=== PATIENT | female | born 1985 | race American Indian/Alaskan Native ===

== ENCOUNTER 2017-04-21 12:19 | Emergency (ER) | payer OTHER ==
[2017-04-21 12:30] VITALS: BP 118/70; PULSE 92; RESP 18; TEMP 98.4; O2SAT 100
[2017-04-21 13:25] LABS: BASO % 0.3 % (0.0-2.0); EOS # 0.1 K/uL (0.0-0.7); EOS % 0.6 % (0.0-4.0); HEMATOCRIT 37.1 % (34.0-47.0); LYMPH # 1.8 K/uL (1.0-4.3); LYMPH % 16.9 % (20.0-40.0); MEAN CELL VOLUME 89.1 fl (81.0-99.0); MEAN CORPUSCULAR HEMOGLOBIN 29.7 pg (27.0-31.0); MEAN CORPUSCULAR HGB CONC 33.3 g/dL (33.0-37.0); MEAN PLATELET VOLUME 7.8 fl (7.2-11.7); MONO # 0.6 K/uL (0.0-0.8); MONO % 5.5 % (0.0-10.0); NEUT # 8.3 K/uL (1.8-7.0); NEUT % 76.7 % (50.0-75.0); RED CELL DISTRIBUTION WIDTH 13.5 % (11.5-14.5); WHITE BLOOD COUNT 10.8 K/uL (4.8-10.8)
[2017-04-21 13:27] LABS: ALB/GLOB RATIO 1.2 (1.0-2.1); ALKALINE PHOSPHATASE 52 U/L (38-126); ALT/SGPT 32 U/L (9-52); AST/SGOT 46 U/L (14-36); BILIRUBIN,TOTAL 0.5 mg/dl (0.2-1.3); BLOOD UREA NITROGEN 8 mg/dl (7-17); CALCIUM 9.4 mg/dL (8.4-10.2); CARBON DIOXIDE 22 mmol/L (22-30); CHLORIDE 103 mmol/L (98-107); GFR AFRICAN-AMERICAN > 60; GLUCOSE,RANDOM 85 mg/dL (65-105); SODIUM 136 mmol/l (132-148); TOTAL PROTEIN 7.9 G/DL (6.3-8.2)
[2017-04-21 13:46] LABS: RBC URINE 3 /hpf (0-3); URINE BACTERIA OCC (<OCC); URINE BILIRUBIN NEGATIVE (NEGATIVE); URINE BLOOD NEGATIVE (NEGATIVE); URINE COLOR YELLOW (YELLOW); URINE GLUCOSE (UA) NEG (Normal); URINE KETONE 20 mg/dL (NEGATIVE); URINE LEUKOCYTE ESTERASE TRACE Leu/uL (Negative); URINE PROTEIN 30 mg/dL (NEGATIVE); URINE UROBILINOGEN 0.2-1.0 mg/dL (0.2-1.0); WBC URINE 4 /hpf (0-5)
[2017-04-21 14:14] LABS: POTASSIUM 4.5 MMOL/L (3.6-5.0)
--- NOTE | 2017-04-21 14:16 | ED PDOC ---
HPI: Female Pain Time Seen by Provider: 04/21/17 12:41 Chief Complaint (Nursing): Female Genitourinary Chief Complaint (Provider): pelvic pain History Per: Patient History/Exam Limitations: no limitations Additional Complaint(s): 31yo F in ED for eval pelvic pain since this AM cramping without vaginal bleeding or discharge. negative for back pain, negative for nausea vomiting fever chills. denies hematuira. Pt admits to heartburn noted most after eating with burning sensation epigastric worse at night and has increased salivation. no radiation of pain, no diaphoresis, no neck pain no arm pain no radiation of epigstric pain to back. pt has appt with her OBGYN today Past Medical History Reviewed: Historical Data, Nursing Documentation, Vital Signs Vital Signs: Last Vital Signs Temp 98.4 F 04/21/17 12:27 Pulse 92 H 04/21/17 12:27 Resp 18 04/21/17 12:27 BP 118/70 04/21/17 12:27 Pulse Ox 100 04/21/17 12:27 - Medical History PMH: No Chronic Diseases - Family History Family History: States: No Known Family Hx - Home Medications Home Medications: Ambulatory Orders Medication Instructions Recorded Nitrofurantoin Macrocrystals 100 mg PO BID #14 cap 04/21/17 [Macrobid] - Allergies Allergies/Adverse Reactions: Allergies Allergy/AdvReac Type Severity Reaction Status Date / Time No Known Allergies Allergy Verified 04/21/17 12:27 Review of Systems ROS Statement: Except As Marked, All Systems Reviewed And Found Negative Constitutional: Negative for: Fever, Chills Cardiovascular: Positive for: Chest Pain. Negative for: Palpitations, Orthopnea Respiratory: Negative for: Cough, Shortness of Breath Gastrointestinal: Positive for: Abdominal Pain. Negative for: Nausea, Vomiting Genitourinary Female: Negative for: Dysuria Musculoskeletal: Negative for: Back Pain Physical Exam - Reviewed Nursing Documentation Reviewed: Yes Vital Signs Reviewed: Yes - Physical Exam Appears: Positive for: Well, Non-toxic, No Acute Distress Head Exam: Positive for: ATRAUMATIC, NORMAL INSPECTION, NORMOCEPHALIC Skin: Positive for: Normal Color, Warm, DRY Neck: Positive for: Normal, Painless ROM Cardiovascular/Chest: Positive for: Regular Rate, Rhythm Respiratory: Positive for: CNT, Normal Breath Sounds Gastrointestinal/Abdominal: Positive for: Bowel Sounds, Soft, Tenderness ( suprapubic) Back: Positive for: Normal Inspection. Negative for: L CVA Tenderness, R CVA Tenderness Extremity: Positive for: Normal ROM Neurologic/Psych: Positive for: Alert, Oriented - Laboratory Results Result Diagrams: 04/21/17 13:09 04/21/17 13:09 Urine dip results: Positive for: Leukocyte Esterase - ECG O2 Sat by Pulse Oximetry: 100 - Progress ED Course And Treament: US of abdominal and labs Medical Decision Making Medical Decision Making: pt with negative US and positive UA shows UTI will be d/c with macrobid and advised to f.u with her obgyn and given pepcid for heartburn stable VS and well appearing. Disposition - Clinical Impression Clinical Impression: Urinary tract infection - Patient ED Disposition Is Patient to be Admitted: No Counseled Patient/Family Regarding: Studies Performed, Diagnosis, Need For Followup, Rx Given - Disposition Disposition: Routine/Home Disposition Time: 14:33 Condition: GOOD Prescriptions: Nitrofurantoin Macrocrystals [Macrobid] 100 mg PO BID #14 cap Instructions: Urinary Tract Infection in (ED)
--- NOTE | 2017-04-21 14:17 | US ---
HISTORY: abdominal pain, patient is 15 weeks . COMPARISON: None available. TECHNIQUE: Sonographic evaluation of the right upper quadrant of the abdomen. FINDINGS: LIVER: Measures 16.7 cm in length and appears within normal limits of shape, size, and echotexture. No focal hepatic mass identified. The main portal vein appears patent with normal directional flow. No intrahepatic bile duct dilatation. GALLBLADDER: Numerous small echogenic, shadowing, slightly mobile foci consistent with gallstones. No gallbladder wall thickening or pericholecystic edema. Negative sonographic Ballesteros's sign as assessed by the real estate instructor. COMMON BILE DUCT: Measures 5 mm. PANCREAS: Not well-visualized. RIGHT KIDNEY: Measures 11.6 x 5.5 x 4.3 cm. No obstructing calculus or hydronephrosis identified. AORTA: Limited visualization appears grossly unremarkable. IVC: Limited visualization appears grossly unremarkable. OTHER FINDINGS: heart beat 143.2 beats per minute. IMPRESSION: Cholelithiasis. heart beat 143.2 beats per minute. Please note that examination was not performed for evaluation of the fetus and heart rate was the sole factor assessed. If indicated, dedicated ultrasound suggested.
== END 2017-04-21 14:44 | disposition home or self-care (01) ==
LOC: H.ER 12:19
DX: O23.40 Unspecified infection of urinary tract in pregnancy, unspecified trimester (principal)

== ENCOUNTER 2017-06-28 12:00 | Emergency (ER) | payer OTHER ==
--- NOTE | 2017-06-28 16:11 | OBHP ---
Datetime: 06/28/2017 13:41 IP Adm Impression: , intrauterine IP Admit Plan: Observation/Evaluation; Discharge home Pelvic Type - PN: Adequate Extremities - PN: Normal Abdomen - PN: Normal Back - PN: Not Done Breast - PN: Normal Lungs - PN: Normal Heart - PN: Normal Thyroid - PN: Normal Neurologic - PN: Normal HEENT - PN: Normal General - PN: Normal FHR - Baseline A Provider: 150 EGA AdmitDate IP: 24.6 Vital Signs Provider: Reviewed; Within Normal Limits IP Chief Complaint: Decreased movement NICHD Variability Prov Fetus A: Moderate 6-25bpm NICHD Accel Fetus A IP Provider: 15X15 FHR Category Provider Fetus A: Category I Genitourinary Exam: Not Done DTRs - PN: Not Done Datetime: 06/28/2017 12:40 Admit Comment, IP Provider: CC: "Decrease movement" HPI: 31 YO currently at 24.6 wks IUP (per LMP 10/12/17) presents to [facility] for decrease movement. Per pt, she noticed it this morning around 7AM and she waited to see if there was any impr ovement throughout the morning but then decideed to come in. Pt states that she has had a cough and s ore throat for the last 1x week and on wednesday and wednesday night she took children's benadryl liquid (approx 1 teaspoonful). Denies VB, contractions, LOF, and FM. No chest pain, fever, urinary frequency , urinary urgency, dysuria, dyspnea, headache, n/v. Obhx: 1 miscarrige when pt was 23; does not recall how many weeks but says it was early Gyngx: no hx of STIs PMH: denies PSh: hx of thyroid cyst removal when pt was 18 and gastric sleeve 2 yrs ago SH: denies smoking, ETOH, illicit drugs FHx: materal grandmother DM, mother DM and sister breast cancer Meds: PNV Allergies: NKDA PE: Vitals: stable GEN: NAD Cardio: S1S2, no M/G/R Resp: clear breathing b/l Abdomen: gravid, NT, BS+ Ext: minimal edema up to the [place], NT FHM: HR 150, moderate variability. No contractions Assessment/Plan: 31 YO currently at 24.6 wks IUP (per LMP 10/12/17) presents to [facility] for de crease movement. Pt is in NAD, in [facility] for observation -Observe pt and reassess -continue monitor Hali Roca, PGY I OBH ADDENDUM; pt seen _ examined by me. agree with above assessmenta and plan.
[2017-06-28 18:00] VITALS: BP 124/76; PULSE 86; RESP 18; TEMP 98.3; O2SAT 100
== END 2017-06-28 13:19 | disposition home or self-care (01) ==
LOC: H.EROB2 12:00 → H.L&D 12:34 → H.EROB2 13:19
DX: O47.02 False labor before 37 completed weeks of gestation, second trimester (principal); Z3A.25 25 weeks gestation of pregnancy

== ENCOUNTER 2017-06-28 13:39 | Emergency (ER) | payer OTHER ==
[2017-06-28 13:43] VITALS: BP 129/68; PULSE 82; RESP 18; TEMP 98; O2SAT 100; BMI 39.2
--- NOTE | 2017-06-28 14:22 | ED PDOC ---
HPI: General Adult Time Seen by Provider: 06/28/17 13:48 Chief Complaint (Nursing): ENT Problem Chief Complaint (Provider): Evaluation History Per: Patient History/Exam Limitations: no limitations Onset/Duration Of Symptoms: Hrs Current Symptoms Are (Timing): Better Additional Complaint(s): 31 y/o female who is currently 24 weeks presents to the emergency department after seen by [facility] department in our facility prior to arrival after she felt a decreased feeling of heart movement. Associated with congestion and a sore throat which she connects it to allergies. Reports taking Benadryl with minimal relief of pain. Patient [facility] for a rapid strep test. Denies fever, chills, or belly pain. Past Medical History Reviewed: Historical Data, Nursing Documentation, Vital Signs Vital Signs: Last Vital Signs Temp 98 F 06/28/17 13:42 Pulse 82 06/28/17 13:42 Resp 18 06/28/17 13:42 BP 129/68 06/28/17 13:42 Pulse Ox 100 06/28/17 15:08 - Medical History PMH: No Chronic Diseases - Surgical History Surgical History: No Surg Hx - Family History Family History: States: No Known Family Hx - Living Arrangements Living Arrangements: With Family - Social History Current smoker - smoking cessation education provided: No Alcohol: None Drugs: Denies - Home Medications Home Medications: Ambulatory Orders Medication Instructions Recorded Nitrofurantoin Macrocrystals 100 mg PO BID #14 cap 04/21/17 [Macrobid] - Allergies Allergies/Adverse Reactions: Allergies Allergy/AdvReac Type Severity Reaction Status Date / Time No Known Allergies Allergy Verified 04/21/17 12:27 Review of Systems ROS Statement: Except As Marked, All Systems Reviewed And Found Negative Constitutional: Negative for: Fever, Chills ENT: Positive for: Nose Congestion, Throat Pain Gastrointestinal: Negative for: Abdominal Pain Physical Exam - Reviewed Nursing Documentation Reviewed: Yes Vital Signs Reviewed: Yes - Physical Exam Appears: Positive for: Non-toxic, No Acute Distress Head Exam: Positive for: ATRAUMATIC, NORMAL INSPECTION, NORMOCEPHALIC Skin: Positive for: Normal Color, Warm, Dry Eye Exam: Positive for: Normal appearance, EOMI Neck: Positive for: Normal, Supple Cardiovascular/Chest: Positive for: Regular Rate, Rhythm. Negative for: Murmur Respiratory: Positive for: Normal Breath Sounds. Negative for: Accessory Muscle Use, Respiratory Distress Gastrointestinal/Abdominal: Positive for: Normal Exam, Soft. Negative for: Tenderness Extremity: Positive for: Normal ROM. Negative for: Pedal Edema Neurologic/Psych: Positive for: Alert, Oriented (x3) - ECG O2 Sat by Pulse Oximetry: 100 (RA) Pulse Ox Interpretation: Normal - Progress ED Course And Treament: rapid strep: neg Medical Decision Making Medical Decision Making: Time: 13:55 Initial impression: Strep throat testing Initial plan: --Rapid Strep Group --Reevaluation Time: 13:55 --Strep: Negative --Throat Culture ordered Scribe Attestation: Documented by Tish Mccrary, acting as a scribe for Lynn Mendieta PA-C. Provider Scribe Attestation: All medical record entries made by the Scribe were at my direction and personally dictated by me. I have reviewed the chart and agree that the record accurately reflects my personal performance of the history, physical exam, medical decision making, and the department course for this patient. I have also personally directed, reviewed, and agree with the discharge instructions and disposition. Disposition - Clinical Impression Clinical Impression: Seasonal allergies - Patient ED Disposition Is Patient to be Admitted: No - Disposition Disposition: Routine/Home Disposition Time: 15:08 Condition: FAIR Instructions: Pharyngitis (ED) Forms: [employer] (Gabonese)
== END 2017-06-28 15:31 | disposition home or self-care (01) ==
LOC: H.ER 13:39
DX: J30.2 Other seasonal allergic rhinitis (principal); Z3A.24 24 weeks gestation of pregnancy

== ENCOUNTER 2017-09-29 08:45 | Inpatient (IN) | payer OTHER ==
[2017-09-29 09:16] VITALS: BMI 40.6
[2017-09-29] MEDS: Lactated Ringer's 1,000 ML IV SCH ×4 (09:55→20:05)
[2017-09-29] MEDS ORDERED: Penicillin G Potassium 5 MU in Sodium Chloride 0.9% 50 ML IVPB ONE (10:00)
--- NOTE | 2017-09-29 10:12 | OBHP ---
Datetime: 09/29/2017 09:46 IP Adm Impression: Term, intrauterine IP Admit Plan: Admit to unit; Initiate labor protocol; Observation/Evaluation Admit Comment, IP Provider: CC: SROM HPI: 31 YO 38.1wks IUP presents to [facility] for suspected SROM. Pt states that around 7:20 thi s AM, pt had a large gush of fluid per vagina. There was a large pool in her bed and in the floor. Sh e describes it as clear in color, no foul smell. Additionally around 8:20 pt started experiencing occ asional ctx, in moderate intensity. Endorses +FM, + LOF, + ctx and no VB. Obhx: 1 miscarrige when pt was 23; does not recall how many weeks but says it was early Gyngx: no hx of STIs, normal pap PMH: denies PSH: hx of thyroid cyst removal when pt was 18 and gastric sleeve 2015 SH: denies smoking, ETOH, illicit drugs FHx: materal grandmother DM, mother DM and sister breast cancer Meds: PNV Allergies: NKDA PE: Vitals: stable GEN: NAD Cardio: S1S2, no M/G/R Resp: clear breathing b/l Abdomen: gravid, NT, BS+ Ext: no edema noted, NT FHM: HR 150, moderate variability-catagory I Bedside u/s: vertex presentation cervx: 3/100/-2 Speculum: pooling noted in the vaginal vault, nitrazine pos Assessment/Plan: 31 YO @ 38.1wks IUP is evealuted for SROM. GBS positive, HIV neg, RPR neg, H ep B neg, rubella immune. -admit pt -start IV fluids -Penicillin 5/2.5 for GBS -blood work -continue to monitor -vitals Pt seen and examined with attending, Dr. Zen Roca, PGY I OB Hospitalist Addendum: Pt seen and examined by me. Agree w/ above. 31 yo at 38+1 wks w / LOF at 07:20 am w/ occasional ctxns that started around 08:30am. Speculum exam revealed clear flui d, +nitrazine. VE: 3/100/-1. NST reactive. Pt ruptured w/ clear fluid in labor. Admit to L_D. Wi ll start PCN for GBS prophylaxis. (ES) Pelvic Type - PN: Adequate Extremities - PN: Normal Abdomen - PN: Normal Back - PN: Normal Breast - PN: Normal Lungs - PN: Normal Heart - PN: Normal Thyroid - PN: Not Done Neurologic - PN: Normal HEENT - PN: Normal General - PN: Normal FHR - Baseline A Provider: 150 Membranes, Provider: Ruptured Pool Provider: Positive Nitrazine Provider: Positive EGA AdmitDate IP: 38.1 Vital Signs Provider: Reviewed; Within Normal Limits IP Chief Complaint: Suspected ruptured membranes NICHD Variability Prov Fetus A: Moderate 6-25bpm NICHD Accel Fetus A IP Provider: 15X15 FHR Category Provider Fetus A: Category I Dilatation, Provider: 3 Effacement, Provider: 100 Station, Provider: -2 Genitourinary Exam: Normal DTRs - PN: Not Done
[2017-09-29 10:29] LABS: BASO % 0.3 % (0.0-2.0); EOS # 0.1 K/uL (0.0-0.7); EOS % 0.5 % (0.0-4.0); HEMATOCRIT 34.2 % (34.0-47.0); LYMPH # 1.6 K/uL (1.0-4.3); LYMPH % 14.7 % (20.0-40.0); MEAN CELL VOLUME 86.5 fl (81.0-99.0); MEAN CORPUSCULAR HEMOGLOBIN 29.8 pg (27.0-31.0); MEAN CORPUSCULAR HGB CONC 34.4 g/dL (33.0-37.0); MONO # 0.7 K/uL (0.0-0.8); MONO % 6.4 % (0.0-10.0); NEUT # 8.4 K/uL (1.8-7.0); NEUT % 78.1 % (50.0-75.0); RED CELL DISTRIBUTION WIDTH 13.9 % (11.5-14.5); WHITE BLOOD COUNT 10.8 K/uL (4.8-10.8)
--- NOTE | 2017-09-29 10:30 | OBHP ---
Datetime: 09/29/2017 09:46 EGA AdmitDate IP: 38.1 Datetime: 09/29/2017 09:38 Admit Comment, IP Provider: CC: SROM HPI: 31 YO 38.1wks IUP presents to [facility] for suspected SROM. Pt states that around 7:20 thi s AM, pt had a large gush of fluid per vagina. There was a large pool in her bed and in the floor. Sh e describes it as clear in color, no foul smell. Additionally around 8:20 pt started experiencing occ asional ctx, in moderate intensity. Endorses +FM, + LOF, + ctx and no VB. Obhx: 1 miscarrige when pt was 23; does not recall how many weeks but says it was early Gyngx: no hx of STIs, normal pap PMH: denies PSH: hx of thyroid cyst removal when pt was 18 and gastric sleeve 2015 SH: denies smoking, ETOH, illicit drugs FHx: materal grandmother DM, mother DM and sister breast cancer Meds: PNV Allergies: NKDA PE: Vitals: stable GEN: NAD Cardio: S1S2, no M/G/R Resp: clear breathing b/l Abdomen: gravid, NT, BS+ Ext: no edema noted, NT FHM: HR 150, moderate variability-catagory I Bedside u/s: vertex presentation cervx: 3/100/-1 Speculum: pooling noted in the vaginal vault, nitrazine pos Assessment/Plan: 31 YO @ 38.1wks IUP is evealuted for SROM. GBS positive, HIV neg, RPR neg, H ep B neg, rubella immune. -admit pt -start IV fluids -Penicillin 5/2.5 for GBS -blood work -continue to monitor -vitals Pt seen and examined with attending, Dr. Zen Roca, PGY I OB Hospitalist Addendum: Pt seen and examined by me. Agree w/ above. 31 yo at 38+1 wks w / LOF at 07:20 am w/ occasional ctxns that started around 08:30am. Speculum exam revealed clear flui d, +nitrazine. VE: 3/100/-1. NST reactive. Pt ruptured w/ clear fluid in labor. Admit to L_D. Wi ll start PCN for GBS prophylaxis. (ES)
[2017-09-29] MEDS ORDERED: Oxytocin 30 UNITS in Sodium Chloride 0.9% 500 ML IV ONE (11:37)
--- NOTE | 2017-09-29 16:22 | OBPN ---
Datetime: 09/29/2017 16:19 IP Progress Impression: Normal progression of labor IP Procedures: Intrauterine Pressure Catheter; Sterile Vag Exam IP Progress Plan: Continue present management Membranes, Provider: Ruptured FHR - Baseline A Provider: 140 IP Progress Note Comment: 31 yo at 38+1 wks w/ SROM IUPC placed to better evaluate contraction frequency FHT reassuring Continue pitocin PCN for GBS prophylacxis Pt desires epidural for pain NICHD Accel Fetus A IP Provider: 15X15 FHR Category Provider Fetus A: Category I NICHD Variability Prov Fetus A: Moderate 6-25bpm Dilatation, Provider: 5 Effacement, Provider: 100 Station, Provider: -1 NICHD Decel Fetus A IP Provider: None Datetime: 09/29/2017 09:46 Pool Provider: Positive Nitrazine Provider: Positive Vital Signs Provider: Reviewed; Within Normal Limits
[2017-09-29] MEDS ORDERED: Bupivacaine HCl 0.25% PF (10 ml) Inj ONE (16:43)
[2017-09-29] MEDS ORDERED: Fentanyl/Bupivacaine HCl 250 ML EPI ONE (17:24)
[2017-09-30] MEDS ORDERED: Oxycodone/Acetaminophen 5/325 mg Tab PO PRN ×2 (01:23→03:49)
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
[2017-09-30 07:03] LABS: BASO # 0.1 K/uL (0.0-0.2); BASO % 0.5 % (0.0-2.0); EOS % 0.2 % (0.0-4.0); HEMATOCRIT 34.7 % (34.0-47.0); LYMPH # 2.1 K/uL (1.0-4.3); LYMPH % 9.2 % (20.0-40.0); MEAN CELL VOLUME 88.5 fl (81.0-99.0); MEAN CORPUSCULAR HEMOGLOBIN 28.9 pg (27.0-31.0); MEAN CORPUSCULAR HGB CONC 32.6 g/dL (33.0-37.0); MEAN PLATELET VOLUME 8.3 fl (7.2-11.7); MONO # 1.4 K/uL (0.0-0.8); NEUT # 19.1 K/uL (1.8-7.0); NEUT % 84.1 % (50.0-75.0); PLATELET COUNT 243 K/uL (130-400); RED CELL DISTRIBUTION WIDTH 14.4 % (11.5-14.5); WHITE BLOOD COUNT 22.7 K/uL (4.8-10.8)
[2017-09-30 11:44] LABS: NEUTROPHIL 81 % (42-75); TOTAL CELLS COUNTED 100
[2017-09-30] MEDS ORDERED: Influenza Vaccine 18yr & older 0.5 ML/45 MCG SYR IM ONE (14:54)
--- NOTE | 2017-10-01 09:51 | OBPPN ---
Datetime: 10/01/2017 09:45 PP Pain Prov: Within normal limits PP Nausea Prov: Denies PP Flatus Prov: Yes PP BM Prov: Yes PP Breasts Prov: Normal PP Heart Prov: Normal PP Lungs Prov: Normal PP Abdomen/Uterus Prov: Normal PP Lochia Prov: Normal PP Vulva/Perineum Prov: Normal PP CVA Tenderness Prov: Normal PP Extremities Prov: Normal PP Progress Note Prov: H/H A: S/P day 1 PLAN: cont care Vital Signs Provider PP: Reviewed; Within Normal Limits
--- NOTE | 2017-10-01 15:40 | OBDCSUM ---
Datetime: 10/01/2017 15:11 Discharged to, Provider: Home Follow up at, Provider: Dr. Manley Disch Instr Activity: Normal activity; May Shower Disch Instr Diet: Regular Discharge Time: 10/01/2017 15:12 Follow up in weeks, Provider: 4-6 Weeks Disch Referrals: None Disch Activity Restrictions: No lifting; Minimize stair-climbing; No sexual activity; Nothing in vag sanjana - [place], tampons, douche Datetime: 06/28/2017 13:19 Discharge Time: 06/28/2017 13:30
--- NOTE | 2017-10-01 15:40 | OBPPN ---
Datetime: 10/01/2017 15:38 PP Progress Note Prov: Notifieid cleared for EPDS 17 - by social service...discharge home and follow up in 6w
[2017-10-01 21:38] VITALS: BP 126/74; PULSE 83; RESP 20; TEMP 97.9; O2SAT 100
== END 2017-10-01 17:15 | disposition home or self-care (01) | DRG 775 ==
LOC: H.EROB 08:45 → H.EROB2 08:45 → H.L&D 09:34 → H.OB/GYN 09-30 03:30
PROVIDERS: ADMIT Obstetrics & Gynecology; ATTEND Obstetrics & Gynecology
PROC: 10E0XZZ Delivery of Products of Conception, External Approach (ICD-10-PCS; principal; 2017-09-29)
PROC: 0KQM0ZZ Repair Perineum Muscle, Open Approach (ICD-10-PCS; 2017-09-29)
PROC: 4A1HXCZ Monitoring of Products of Conception, Cardiac Rate, External Approach (ICD-10-PCS; 2017-09-29)
PROC: 3E0234Z Introduction of Serum, Toxoid and Vaccine into Muscle, Percutaneous Approach (ICD-10-PCS; 2017-09-30)
DX: O36.63X0 Maternal care for excessive fetal growth, third trimester, not applicable or unspecified (principal); O71.82 Other specified trauma to perineum and vulva; O99.824 Streptococcus B carrier state complicating childbirth; Z37.0 Single live birth; Z3A.38 38 weeks gestation of pregnancy; Z23 Encounter for immunization; Z98.84 Bariatric surgery status

== ENCOUNTER 2017-10-13 16:03 | Emergency (ER) | payer OTHER ==
[2017-10-13 16:03] VITALS: BMI 40.6
[2017-10-13 16:18] VITALS: BP 147/92; PULSE 77; RESP 18; TEMP 98.9; O2SAT 99
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
== END 2017-10-13 17:17 | disposition home or self-care (01) ==
LOC: H.ER 16:03
DX: M54.9 Dorsalgia, unspecified (principal); V89.2XXA Person injured in unspecified motor-vehicle accident, traffic, initial encounter